=== PATIENT | female | born 1950 | race Caucasian/White ===

== ENCOUNTER → 2023-10-11 10:46 | Outpatient (REF) | payer MEDICARE, SELFPAY ==
[2023-10-11 12:50] LABS: ALT (SGPT) 38 U/L (0-35); AST (SGOT) 36 U/L (14-36); Albumin 3.9 g/dl (3.5-5.0); Alkaline Phosphatase 57 U/L (38-126); Blood Urea Nitrogen 20 mg/dl (7-17); Calcium 9.6 mg/dl (8.4-10.2); Carbon Dioxide 30 mmol/L (22-30); Chloride 99 mmol/L (98-107); Glucose 103 mg/dl (70-99); Potassium 4.1 mmol/L (3.5-5.1); Sodium 135 mmol/L (135-145); Total Bilirubin 0.6 mg/dl (0.2-1.3); Total Protein 6.8 g/dl (6.3-8.2); eGFR > 60.00
== END ==
LOC: HWLAB 10:46
PROVIDERS: ATTENDING PHYSICIAN Internal Medicine; REFERRING PHYSICIAN Internal Medicine Endocrinology, Diabetes & Metabolism
DX: E21.3 Hyperparathyroidism, unspecified (principal)
CPT/HCPCS: 36415; 80053

== ENCOUNTER → 2023-11-11 11:05 | Outpatient (REF) | payer MEDICARE, SELFPAY ==
[2023-11-11 11:21] LABS: Ionized Calcium 1.18 mMOL/L (1.15-1.33)
== END ==
LOC: REG 11:05
PROVIDERS: ATTENDING PHYSICIAN Internal Medicine; REFERRING PHYSICIAN Internal Medicine Endocrinology, Diabetes & Metabolism
DX: Z86.39 Personal history of other endocrine, nutritional and metabolic disease (principal)
CPT/HCPCS: 36415; 82330

== ENCOUNTER → 2023-12-20 14:59 | Outpatient (REF) | payer MEDICARE, SELFPAY | LOC: HWRAD 14:59 | PROVIDERS: ATTENDING PHYSICIAN Physician Assistant Surgical; FAMILY PHYSICIAN Internal Medicine | DX: M47.816 Spondylosis without myelopathy or radiculopathy, lumbar region (principal); M54.2 Cervicalgia; M54.9 Dorsalgia, unspecified | CPT/HCPCS: 72050; 72072; 72110 ==

== ENCOUNTER → 2024-01-06 11:16 | Outpatient (REF) | payer MEDICARE, SELFPAY ==
[2024-01-06 12:32] LABS: Intact PTH 33.7 pg/ml (13.6-85.8)
[2024-01-06 13:03] LABS: Calcium 10.2 mg/dl (8.4-10.2)
== END ==
LOC: REG 11:16
PROVIDERS: ATTENDING PHYSICIAN Internal Medicine
DX: E21.3 Hyperparathyroidism, unspecified (principal)
CPT/HCPCS: 36415; 82330; 83970

== ENCOUNTER → 2024-06-17 11:48 | Outpatient (REF) | payer MEDICARE, SELFPAY ==
[2024-06-17 15:40] LABS: ALT (SGPT) 49 U/L (0-35); AST (SGOT) 43 U/L (14-36); Albumin 4.8 g/dl (3.5-5.0); Alkaline Phosphatase 55 U/L (38-126); Blood Urea Nitrogen 20 mg/dl (7-17); Carbon Dioxide 28 mmol/L (22-30); Chloride 100 mmol/L (98-107); Glucose 96 mg/dl (70-99); Potassium 4.3 mmol/L (3.5-5.1); Sodium 140 mmol/L (135-145); Total Bilirubin 0.4 mg/dl (0.2-1.3); Total Protein 7.4 g/dl (6.3-8.2); eGFR > 60.00
[2024-06-18 10:17] LABS: Intact PTH 30.8 pg/ml (13.6-85.8)
== END ==
LOC: HWLAB 11:48
PROVIDERS: ATTENDING PHYSICIAN Internal Medicine Endocrinology, Diabetes & Metabolism; FAMILY PHYSICIAN Internal Medicine
DX: M81.0 Age-related osteoporosis without current pathological fracture (principal)
CPT/HCPCS: 36415; 80053; 83970

== ENCOUNTER → 2024-11-20 11:40 | Outpatient (REF) | payer MEDICARE, SELFPAY ==
[2024-11-20 13:04] LABS: Intact PTH 27.6 pg/ml (13.6-85.8)
[2024-11-20 13:18] LABS: ALT (SGPT) 46 U/L (0-35); AST (SGOT) 38 U/L (14-36); Albumin 4.5 g/dl (3.5-5.0); Alkaline Phosphatase 71 U/L (38-126); Blood Urea Nitrogen 20 mg/dl (7-17); Calcium 10.2 mg/dl (8.4-10.2); Carbon Dioxide 33 mmol/L (22-30); Chloride 103 mmol/L (98-107); Glucose 94 mg/dl (70-99); Potassium 4.3 mmol/L (3.5-5.1); Sodium 140 mmol/L (135-145); Total Bilirubin 0.6 mg/dl (0.2-1.3); Total Protein 7.1 g/dl (6.3-8.2); eGFR > 60.00
[2024-11-20 13:28] LABS: Vitamin D, 25-OH*** 61.6 ng/mL (30-80)
== END ==
LOC: HWLAB 11:40
PROVIDERS: ATTENDING PHYSICIAN Internal Medicine Endocrinology, Diabetes & Metabolism; FAMILY PHYSICIAN Internal Medicine
DX: M81.0 Age-related osteoporosis without current pathological fracture (principal); E55.9 Vitamin D deficiency, unspecified; E21.3 Hyperparathyroidism, unspecified
CPT/HCPCS: 36415; 80053; 82306; 83970

== ENCOUNTER 2025-04-05 10:58 | Emergency (ER) | payer MEDICARE, SELFPAY ==
[2025-04-05] VITALS (17 sets, daily range): BP systolic 100–158; BP diastolic 61–95
--- NOTE | 2025-04-05 12:19 | ED.MUSCINJ ---
HPI-Injury
<Carlos Gonzalez PA-C - Last Filed: 04/05/25 15:12>
General
Chief Complaint: Fall
Source: patient
Exam Limitations: none
Time Seen by Provider: 04/05/25 11:56
History of Present Illness-Injury
Initial Injury comments:
74-year-old [id number] female presents complaining of left wrist swelling pain and deformity after a fall. She bumped into her and fell onto her left side. She also complains of left elbow pain and left sided pain. She has a
history of osteoporosis. No other complaints at this time. She is not anticoagulated
Past History
<Carlos Gonzalez PA-C - Last Filed: 04/05/25 15:12>
Past History
ED Past Medical History: None
ED Past Surgical History: None
Social History
Tobacco: Non-smoker
Personal:
Phy Exam
<Carlos Gonzalez PA-C - Last Filed: 04/05/25 15:12>
Physical Exam
Physical Exam:
General: Well-appearing female no acute respiratory distress
HEENT normocephalic atraumatic
Heart: Regular rate and rhythm
Lungs: Clear no wheeze
Musculoskeletal exam: The spine is nontender. Her left wrist is deformed and tender. She is slightly tender and swollen to the left elbow as well as the left lateral distal morfin. The upper arm and shoulder and clavicles are nontender.
Neurologic: Good sensation to the extremities
Injury Course
<JACKIE Kaminski Last Filed: 04/05/25 15:12>
Orders/Labs/Results
Orders:
Orders
04/05/25 11:08
CR Wrist - Left Min 3 Views Urgent
Comment:
Reason For Exam: injury
04/05/25 12:16
HYDROmorphone [Dilaudid] 0.5 mg IV NOW STA
CR Elbow - Left Min 3 Views Urgent
Comment:
Reason For Exam: fall
CR Leg Tibia/fibula Left 2 Vw Urgent
Comment:
Reason For Exam: pain after fall
04/05/25 13:50
Propofol [Diprivan] 20 ml .ROUTE .STK-MED
04/05/25 14:08
CR Wrist - Left Min 2 Views Stat
Comment:
Reason For Exam: post reduction
04/05/25 15:04
Sling Left-Treatment ONCE
Oxycodone/Acetaminophen [Percocet 5/325] 1 tablet PO NOW STA
<Jack Vizcaino MD - Last Filed: 04/05/25 14:09>
Orders/Labs/Results
Orders:
Orders
04/05/25 11:08
CR Wrist - Left Min 3 Views Urgent
Comment:
Reason For Exam: injury
04/05/25 12:16
HYDROmorphone [Dilaudid] 0.5 mg IV NOW STA
CR Elbow - Left Min 3 Views Urgent
Comment:
Reason For Exam: fall
CR Leg Tibia/fibula Left 2 Vw Urgent
Comment:
Reason For Exam: pain after fall
04/05/25 13:50
Propofol [Diprivan] 20 ml .ROUTE .STK-MED
04/05/25 14:08
CR Wrist - Left Min 2 Views Stat
Comment:
Reason For Exam: post reduction
04/05/25 15:04
Sling Left-Treatment ONCE
Oxycodone/Acetaminophen [Percocet 5/325] 1 tablet PO NOW STA
Procedures
<Carlos Gonzalez PA-C - Last Filed: 04/05/25 15:12>
Moderate Sedation
ASA Risk Score: Class II
Chart and allergies reviewed: Yes
Consent for anesthesia obtained: Yes
Time out completed (validating right patient & procedure): Yes
Moderate Sedation Start Time(when first medication is given): 13:58
History of difficult intubation: No
Airway free of obstruction: Yes
Patient has a gag reflex: Yes
Patient is able to open mouth: Yes
Patient has no dentures: Yes
Patient has no loose teeth: Yes
Medication administered by Provider during Moderate Sedation: IV Propofol (mg)
Total dose administered: 50
Time drug administered: 13:58
Moderate Sedation Procedure End Time: 14:08
<Carlos Gonzalez PA-C - Last Filed: 04/05/25 15:12>
MDM/Problems Addressed
Differential Diagnosis Includes:
Deformity left wrist after fall suspect fracture versus dislocation. She is also tender to the left elbow and morfin. X-rays of the left wrist were personally reviewed and demonstrated a comminuted and displaced distal radius and ulnar fracture of
the left wrist. Elbow x-rays and left morfin x-rays are pending as well.
<Carlos Gonzalez PA-C - Last Filed: 04/05/25 15:12>
*Pulse Oximetry
SaO2: 100
Oxygen Mode of Delivery: Room air
Patient hypoxic: no
*Critical Care Note
Total Time (30-74mins, 75-104mins- exclusive of procedures): Not Applicable
<Carlos Gonzalez PA-C - Last Filed: 04/05/25 15:12>
Update Note
Update Note:
Written consent was obtained for moderate sedation and closed reduction of the left wrist fracture. Sedation performed by emergency room attending. 50 mg propofol were used. The fracture was reduced with longitudinal traction and hyperextension
and dorsal pressure over the fracture site. This was then immobilized with a sugar-tong splint using cast padding 2 inch OCL and Gerardo bandages. Duction films demonstrated significantly improved alignment. Patient will follow-up with orthopedics
ED Attending Note
<Carlos Gonzalez PA-C - Last Filed: 04/05/25 15:12>
-
Portions of this chart may have been created with voice recognition software.� Occasional wrong word or��sound alike� substitutions may have occurred due to the inherent limitations of voice recognition software.
<Jack Vizcaino MD - Last Filed: 04/05/25 14:09>
ED Attending Note
Patient seen and examined by attending physician: Yes
I performed the substantive portion of visit, reviewed & personally made and approve the management plan that is documented in note by myself or SAMANTHA.: Yes
ED Attending Note:
74-year-old female collided with her and falling. Left wrist injury. Some pain at the left elbow. Also hit lower left leg. Able to bear full weight and ambulate. No head injury no acute neck pain no chest pain shortness of breath etc.
TRAUMA EXAM:
VITAL SIGNS: Vital signs reviewed, cooperative
DISTRESS: No active disease
EYES: Pupils reactive, no orbital trauma
NOSE: No deformity or epistaxis
FACE AND SCALP: No scalp or facial trauma
NECK: Supple nontender
BACK: Back nontender, pelvis stable to compression
RESPIRATORY: No distress, breath sounds normal, no tender chest wall
CARDIAC: No murmur, pulses equal and strong
ABDOMEN: Soft nontender bowel sounds normal
SKIN: Ecchymosis and swelling to the left wrist.
EXTREMITIES: Deformity swelling to the left wrist. Mild tenderness left lateral elbow. Very minimal tenderness to the left lower lateral tib-fib area. All other extremities unremarkable. No open fracture.
NEUROLOGICAL: Alert, oriented, no motor deficits
PSYCH: Mood affect normal
Comminuted fracture distal radius. Extra-articular fracture distal ulna. Sail sign to the left elbow. Previously discussed with orthopedics. They asked for us to reduce it. Consent was signed. Wrist was reduced by our physician blood and plasma laboratory assistant and
splinted. Patient tolerated the sedation well with 50 mg of propofol.
Discharge Plan
Departure
Patient Disposition: Home (Routine Discharge)
Date of Disposition: 04/05/25
Time of Disposition: 15:09
Patient with high blood pressure during this ER visit?: No
Discharge Problem:
Fracture of wrist
Instructions: MODERATE SEDATION ADULT
Prescriptions:
New
oxycodone-acetaminophen [Percocet] 5-325 mg tablet
1 tab PO Q8H PRN (Reason: Pain) Qty: 14 0RF
No Action
alprazolam 0.25 MG tablet
0.25 mg PO PRN PRN (Reason: anxiety)
vitamin B complex [Neurodep] 1 CAP capsule
1 cap PO DAILY
docosahexaenoic acid-epa 1 CAP capsule
1 cap PO DAILY
melatonin 1 MG tablet
1 mg PO PRN PRN (Reason: sleep)
escitalopram oxalate 5 MG tablet
5 mg PO DAILY
vitamin E (dl, acetate) 100 UNITS capsule
100 units PO DAILY
Cbd Oil
1 tab PO PRN PRN (Reason: sleep)
ascorbic acid (vitamin C) 250 MG tablet
1 tab PO DAILY
cholecalciferol (vitamin D3) [Vitamin D3] 400 UNITS tablet
1 tab PO DAILY
Magnesium
1 tab PO DAILY
Referrals:
Windy Berrios MD [Family Provider, Internal Medicine]
Corey Moise MD [Active, Orthopedics]
Activity Restrictions/Additional Instructions:
Please follow-up with Dr. Moise this Monday at 945 in the [place] office. The office should call you to confirm the appointment. Keep splint on and dry. Elevate for swelling. Use prescribed pain medicine as needed for severe pain.
Interventions
Interventions:
*Risk Screen - Suicide Last Done: 04/05/25 12:02
*General Assessment Last Done: 04/05/25 12:02
*Neglect/Abuse Screening Last Done: 04/05/25 12:02
*ED- Fall Risk Assessment Last Done: 04/05/25 12:02
ED-Musculoskeletal Assessment Last Done: 04/05/25 12:01
ED- Neurological Assessment Last Done: 04/05/25 12:01
ED-Skin Assessment Last Done: 04/05/25 12:01
Discharge Date and Time
Print Language: BRITISH
[2025-04-05] MEDS: DILAUDID 0.5 MG IV (12:33)
[2025-04-05] MEDS: PERCOCET 5/325 1 TABLET PO (15:07)
== END 2025-04-05 15:59 | disposition home or self-care (01) ==
LOC: EMR 10:58
PROVIDERS: EMERGENCY PHYSICIAN Emergency Medicine; FAMILY PHYSICIAN Internal Medicine
DX: S52.692A Other fracture of lower end of left ulna, initial encounter for closed fracture (principal); S52.572A Other intraarticular fracture of lower end of left radius, initial encounter for closed fracture; W19.XXXA Unspecified fall, initial encounter; M81.0 Age-related osteoporosis without current pathological fracture
CPT/HCPCS: 99283; 25605; 99152; 96374; 73080; 73100; 73110; 73590

== ENCOUNTER → 2025-04-07 10:58 | Outpatient (REF) | payer MEDICARE, SELFPAY ==
[2025-04-07 12:54] LABS: Hematocrit 38.6 % (37.0-47.0); Hemoglobin 12.7 g/dL (12.0-16.0); Mean Corp Hgb Conc. 32.9 g/dL (33.0-37.0); Mean Corpuscular Volume 88.7 fL (81.0-99.0); Nucleated Red Blood Cells % 0 %; Platelet Count 218 10^3/uL (130-400); Red Cell Dist. Width 13.6 % (11.5-14.5)
[2025-04-07 14:01] LABS: Blood Urea Nitrogen 24 mg/dl (7-17); Calcium 9.1 mg/dl (8.4-10.2); Carbon Dioxide 27 mmol/L (22-30); Chloride 105 mmol/L (98-107); Glucose 84 mg/dl (70-99); Potassium 4.8 mmol/L (3.5-5.1); Sodium 137 mmol/L (135-145); eGFR > 60.00
== END ==
LOC: HWLAB 10:58
PROVIDERS: ATTENDING PHYSICIAN Orthopaedic Surgery Hand Surgery; FAMILY PHYSICIAN Internal Medicine
DX: Z01.818 Encounter for other preprocedural examination (principal)
CPT/HCPCS: 36415; 80048; 85025; 93005

== ENCOUNTER → 2025-05-02 14:36 | Outpatient (REF) | payer MEDICARE, SELFPAY | LOC: HWRAD 14:36 | PROVIDERS: ATTENDING PHYSICIAN Psychiatry & Neurology Neurology; FAMILY PHYSICIAN Internal Medicine | DX: M54.50 Low back pain, unspecified (principal); M54.17 Radiculopathy, lumbosacral region | CPT/HCPCS: 72110 ==

== ENCOUNTER → 2025-05-28 11:35 | Outpatient (REF) | payer MEDICARE, SELFPAY | LOC: RAD 11:35 | PROVIDERS: ATTENDING PHYSICIAN Internal Medicine; OTHER PHYSICIAN Internal Medicine Endocrinology, Diabetes & Metabolism | DX: M81.0 Age-related osteoporosis without current pathological fracture (principal); Z78.0 Asymptomatic menopausal state; M80.00XA Age-related osteoporosis with current pathological fracture, unspecified site, initial encounter for fracture | CPT/HCPCS: 77080 ==

== ENCOUNTER → 2025-06-06 11:22 | Outpatient (REF) | payer MEDICARE, SELFPAY ==
[2025-06-06 15:32] LABS: Hematocrit 43.7 % (37.0-47.0); Hemoglobin 14.1 g/dL (12.0-16.0); Mean Corp Hgb Conc. 32.3 g/dL (33.0-37.0); Mean Corpuscular Volume 88.3 fL (81.0-99.0); Nucleated Red Blood Cells % 0 %; Platelet Count 293 10^3/uL (130-400); Red Cell Dist. Width 13.4 % (11.5-14.5)
[2025-06-06 15:40] LABS: ALT (SGPT) 40 U/L (0-35); AST (SGOT) 35 U/L (14-36); Albumin 4.7 g/dl (3.5-5.0); Alkaline Phosphatase 81 U/L (38-126); Blood Urea Nitrogen 22 mg/dl (7-17); Calcium 10.1 mg/dl (8.4-10.2); Carbon Dioxide 29 mmol/L (22-30); Chloride 103 mmol/L (98-107); Glucose 96 mg/dl (70-99); Potassium 4.0 mmol/L (3.5-5.1); Sodium 137 mmol/L (135-145); Total Protein 7.3 g/dl (6.3-8.2); eGFR > 60.00
== END ==
LOC: HWLAB 11:22
PROVIDERS: ATTENDING PHYSICIAN Internal Medicine
DX: Z51.81 Encounter for therapeutic drug level monitoring (principal); D64.9 Anemia, unspecified; I10 Essential (primary) hypertension; E56.9 Vitamin deficiency, unspecified; E61.8 Deficiency of other specified nutrient elements; Z13.6 Encounter for screening for cardiovascular disorders
CPT/HCPCS: 36415; 80053; 82525; 83970; 84207; 84630; 85025